=== PATIENT | female | born 1990 | race Caucasian/White ===

== ENCOUNTER 2016-06-26 11:40 | Emergency (ER) | payer OTHER ==
[~2016-06-26] VITALS: Ht 157.5 cm; Wt 83.8 kg
[~2016-06-26 11:40] MED LIST: AMOXICILLI400 MG/5 M PO; AMOXICILLIN500 MG PO; AMOXIL250 MG/5 M PO; BACTRIM DS1 TAB PO; CIPROFLOXACN500 MG PO; CLARITIN10 M1 PO; IRON325 MG PO; LORTAB 5/3255 MG PO; METRONIDAZOL500 MG PO; NO; ORTHO TRI-CYCLEN LO PO; PRE-NATAL PO; ULTRAM50 MG PO; [UNRECOGNIZED DRUG - OTHER] PO
[2016-06-26] MEDS ORDERED: MOTRIN800 MG PO (12:04)
[2016-06-26] MEDS ORDERED: FLEXERIL PO (12:04)
[2016-06-26 12:12] VITALS: BP 115/58
== END 2016-06-26 12:12 | disposition home or self-care (01) | DRG 552 ==
LOC: ED 11:40
DX: S16.1XXA Strain of muscle, fascia and tendon at neck level, initial encounter (principal); V49.49XA Driver injured in collision with other motor vehicles in traffic accident, initial encounter

== ENCOUNTER 2017-05-12 20:10 | Emergency (ER) | payer OTHER ==
[~2017-05-12] VITALS: Ht 157.5 cm; Wt 84.4 kg
[~2017-05-12 20:10] MED LIST changes: +FLEXERIL PO; +MOTRIN800 MG PO
[2017-05-12] MEDS ORDERED: AMOXICILLIN500 MG PO (21:33)
[2017-05-12 21:38] VITALS: BP 116/60
== END 2017-05-12 21:44 | disposition home or self-care (01) | DRG 153 ==
LOC: ED 20:10
DX: H66.91 Otitis media, unspecified, right ear (principal); H92.01 Otalgia, right ear

== ENCOUNTER 2017-11-13 17:22 | Emergency (ER) | payer OTHER ==
[~2017-11-13] VITALS: Ht 157.5 cm; Wt 81.8 kg
[2017-11-13] MEDS ORDERED: BACITRACIN3.5 GM TOP (17:44)
[2017-11-13 18:00] VITALS: BP 118/66
== END 2017-11-13 18:00 | disposition home or self-care (01) ==
LOC: ED 17:22
DX: T23.272A Burn of second degree of left wrist, initial encounter (principal); X08.8XXA Exposure to other specified smoke, fire and flames, initial encounter; Y93.89 Activity, other specified; Y92.810 Car as the place of occurrence of the external cause

== ENCOUNTER 2018-06-09 22:59 | Emergency (ER) | payer OTHER ==
[~2018-06-09] VITALS: Ht 157.5 cm; Wt 82.0 kg
[~2018-06-09 22:59] MED LIST changes: +BACITRACIN3.5 GM TOP
[2018-06-09 23:09] VITALS: BP 108/56
[2018-06-09] MEDS ORDERED: CODEINE/GUAIFEN1 SOL PO (23:33)
[2018-06-09] MEDS ORDERED: AMOXICILLIN500 MG PO (23:33)
== END 2018-06-10 00:16 | disposition home or self-care (01) | DRG 153 ==
LOC: ED 22:59
DX: J02.9 Acute pharyngitis, unspecified (principal)

== ENCOUNTER 2018-07-02 13:37 | Emergency (ER) | payer OTHER ==
[~2018-07-02] VITALS: Ht 154.9 cm; Wt 81.8 kg
[~2018-07-02 13:37] MED LIST changes: +CODEINE/GUAIFEN1 SOL PO
[2018-07-02] MEDS ORDERED: TESSALON PERLE100 MG PO (15:42)
[2018-07-02] MEDS ORDERED: PREDNISONE20 MG PO (15:42)
[2018-07-02 15:50] VITALS: BP 105/50
== END 2018-07-02 15:50 | disposition home or self-care (01) ==
LOC: ED 13:37
DX: J11.1 Influenza due to unidentified influenza virus with other respiratory manifestations (principal); R05 Cough; R50.9 Fever, unspecified

== ENCOUNTER 2019-04-25 15:33 | Emergency (ER) | payer SELFPAY ==
[~2019-04-25 15:33] MED LIST changes: +PREDNISONE20 MG PO; +TESSALON PERLE100 MG PO
[2019-04-25 17:24] VITALS: BP 103/65
== END 2019-04-25 17:54 | disposition left against medical advice (07) | DRG 951 ==
LOC: ED 15:33 → LWOBS 17:53
DX: Z53.21 Procedure and treatment not carried out due to patient leaving prior to being seen by health care provider (principal)

== ENCOUNTER 2019-05-14 10:21 | Emergency (ER) | payer OTHER ==
[2019-05-14] MEDS ORDERED: ZYRTEC10 MG PO (10:38)
[2019-05-14] MEDS ORDERED: AMOXICILLIN500 MG PO (10:39)
[2019-05-14 11:25] VITALS: BP 110/62
== END 2019-05-14 11:25 | disposition home or self-care (01) ==
LOC: ED 10:21
DX: M79.642 Pain in left hand (principal)

== ENCOUNTER 2024-03-30 13:33 | Emergency (ER) | payer OTHER ==
[~2024-03-30] VITALS: Ht 154.9 cm; Wt 84.0 kg
[~2024-03-30 13:33] MED LIST changes: +ZYRTEC10 MG PO
[2024-03-30] MEDS ORDERED: CIPROFLOXACIN/D1 SUS AD (14:51)
[2024-03-30] MEDS ORDERED: IBUPROFEN600 MG PO (14:51)
[2024-03-30 14:55] VITALS: BP 122/68
== END 2024-03-30 15:01 | disposition home or self-care (01) ==
LOC: ED 13:33
DX: H72.91 Unspecified perforation of tympanic membrane, right ear (principal); J02.9 Acute pharyngitis, unspecified; Z20.822 Contact with and (suspected) exposure to COVID-19